=== PATIENT | female | born 2000 ===

== ENCOUNTER → 2020-09-01 | Outpatient (CLI) | payer OTHER | END | disposition home or self-care (01) | LOC: PRENATAL 10:00 | PROVIDERS: ATTEND Obstetrics & Gynecology Maternal & Fetal Medicine | DX: O35.0XX1 Maternal care for (suspected) central nervous system malformation in fetus, fetus 1 (principal); O35.3XX1 Maternal care for (suspected) damage to fetus from viral disease in mother, fetus 1; O98.512 Other viral diseases complicating pregnancy, second trimester; Z36.89 Encounter for other specified antenatal screening; Z3A.26 26 weeks gestation of pregnancy ==

== ENCOUNTER 2020-10-28 01:58 | Outpatient (CLI) | payer OTHER ==
[2020-10-28] MEDS ORDERED: PRENATAL TABLE1 EAC1 PO (02:00)
[2020-10-28] MEDS ORDERED: CEFUROXIME250 MG PO ×2 (06:56→06:58)
== END 2020-10-28 09:25 | disposition home or self-care (01) ==
LOC: OBS/DEL 01:58
PROVIDERS: ATTEND Obstetrics & Gynecology
DX: O46.8X3 Other antepartum hemorrhage, third trimester (principal); O23.43 Unspecified infection of urinary tract in pregnancy, third trimester; Z3A.34 34 weeks gestation of pregnancy